=== PATIENT | male | born 1955 | race Caucasian/White ===

== ENCOUNTER 2022-12-08 18:13 | Inpatient (IN) | payer MEDICARE ==
[~2022-12-08] VITALS: Ht 165.1 cm; Wt 100.2 kg
[2022-12-08] MEDS ORDERED: METHYLPREDNISOLONE SOD SUCC 125MG/2ML (ACT-O-VIAL) IV STA (20:00)
[2022-12-08] MEDS ORDERED: IPRATROPIUM BROMIDE (0.02%) 0.5MG/2.5ML NEB HHN STA (20:00)
[2022-12-08] MEDS ORDERED: ALBUTEROL (0.083%) 2.5MG/3ML NEB HHN STA (20:00)
[2022-12-08] MEDS ORDERED: ASPIRIN 81MG TABLET PO ONE (20:00)
[2022-12-08 20:17] VITALS: PULSE 95; RESP 22; O2SAT 98
[2022-12-08 20:20] LABS: BASOPHILS % 0.3 % (0.0-2.0); EOSINOPHILS % 0.9 % (0.0-5.0); HEMATOCRIT. 37.2 % (42.0-52.0); HEMOGLOBIN. 12.8 g/dL (14.0-18.0); LYMPHOCYTES % 10.5 % (20.0-50.0); MEAN CORPUSCULAR HEMOGLOBIN 32.1 pg (28.0-32.0); MEAN CORPUSCULAR VOLUME 93.1 fL (80.0-94.0); MEAN PLATELET VOLUME 7.9 fl (7.4-10.4); MONOCYTES % 7.5 % (2.0-8.0); NEUTROPHILS % 80.8 % (40.0-76.0); PLATELET 256 x1000/uL (130-400)
[2022-12-08 20:25] LABS: CHLORIDE 109 mEq/L (98-107)
[2022-12-08] MEDS ORDERED: CEFTRIAXONE 1GM PREMIX 50 ML IV NR (23:15)
[2022-12-08] MEDS ORDERED: AZITHROMYCIN 500MG/250ML 250 ML IV NR (23:15)
[2022-12-08] MEDS ORDERED: ASPIRIN 325MG TABLET PO NR (23:30)
[2022-12-09] VITALS (7 sets, daily range): BP systolic 114–136; BP diastolic 61–71; PULSE 78–100; RESP 16–22; TEMP 97.1–98.8; O2SAT 94
[2022-12-09] MEDS ORDERED: ALBU6.7H3 IH (04:36)
[2022-12-09] MEDS ORDERED: LEVO125T8 MT (04:36)
[2022-12-09] MEDS ORDERED: TAMS-11 MT (04:36)
[2022-12-09] MEDS ORDERED: OXYM30SP26 BOTHNSTRLS (04:36)
[2022-12-09] MEDS ORDERED: IRBE1TAB43 MT (04:36)
[2022-12-09] MEDS ORDERED: ACETAMINOPHEN 325MG TABLET PO PRN (05:00)
[2022-12-09] MEDS: IPRATROPIUM/ALBUTEROL 0.5-3(2.5)MG/3ML NEB HHN PRN (05:10)
[2022-12-09 06:08] LABS: BASOPHILS % 0.1 % (0.0-2.0); EOSINOPHILS % 0.1 % (0.0-5.0); HEMATOCRIT. 35.3 % (42.0-52.0); HEMOGLOBIN. 12.3 g/dL (14.0-18.0); LYMPHOCYTES % 11.3 % (20.0-50.0); MEAN CORPUSCULAR HEMOGLOBIN 32.3 pg (28.0-32.0); MEAN CORPUSCULAR VOLUME 92.5 fL (80.0-94.0); MEAN PLATELET VOLUME 8.4 fl (7.4-10.4); MONOCYTES % 1.9 % (2.0-8.0); NEUTROPHILS % 86.6 % (40.0-76.0); PLATELET 259 x1000/uL (130-400); RED BLOOD CELL COUNT 3.81 mill/uL (4.7-6.1); RED CELL DISTRIBUTION WIDTH 14.9 % (11.6-14.6)
[2022-12-09] MEDS: LEVOTHYROXINE SODIUM 125MCG TABLET PO SCH (06:25)
[2022-12-09 06:54] LABS: HEPATITIS B SURFACE ANTIGEN NEGATIVE
[2022-12-09 07:00] LABS: CHLORIDE 108 mEq/L (98-107)
[2022-12-09 07:18] LABS: HDL CHOLESTEROL 56 mg/dL (40-59); LDL CHOLESTEROL 89 mg/dL (5-100)
[2022-12-09] MEDS: METOPROLOL TARTRATE 50MG TABLET PO SCH ×2 (08:28→20:26)
[2022-12-09] MEDS: LOSARTAN POTASSIUM 50 MG TABLET PO SCH (08:29)
[2022-12-09] MEDS: ASPIRIN 81MG TABLET PO SCH (08:29)
[2022-12-09] MEDS: ENOXAPARIN 30MG/0.3ML SYR SUBCUT SCH ×2 (08:30→20:26)
[2022-12-09] MEDS: TAMSULOSIN HCL 0.4MG SR CAPSULE PO SCH (08:30)
[2022-12-09] MEDS: METHYLPREDNISOLONE SOD SUCC 40MG VIAL IV SCH ×2 (08:30→16:26)
[2022-12-09] MEDS ORDERED: METOPROLOL SUCCINATE 50MG ER TABLET PO SCH (09:00)
[2022-12-09] MEDS ORDERED: CEFTRIAXONE 1GM PREMIX 50 ML IV SCH (10:00)
[2022-12-09 20:47] LABS: *AMPHETAMINES SCREEN URINE NEGATIVE (NEGATIVE); *BARBITURATES SCREEN URINE NEGATIVE (NEGATIVE); *BENZODIAZEPINES SCREEN URINE NEGATIVE (NEGATIVE); *COCAINE SCREEN URINE NEGATIVE (NEGATIVE); CANNABINOID URINE SCREEN NEGATIVE (NEGATIVE); METHADONE URINE SCREEN NEGATIVE (NEGATIVE); OPIATES URINE SCREEN NEGATIVE (NEGATIVE); PHENCYCLIDINE URINE SCREEN NEGATIVE (NEGATIVE)
[2022-12-09] MEDS ORDERED: CEFTRIAXONE 1,000 MG in DEXTROSE 5% WATER 50 ML IV SCH (23:00)
[2022-12-09] MEDS ORDERED: AZITHROMYCIN 500 MG in DEXT 5% WATER 250 ML IV SCH (23:00)
[2022-12-10] VITALS: BP 138/62; PULSE 82; RESP 18; TEMP 99.3
[2022-12-10 01:06] VITALS: PULSE 87; RESP 19; O2SAT 95
[2022-12-10] MEDS: IPRATROPIUM/ALBUTEROL 0.5-3(2.5)MG/3ML NEB HHN PRN (01:06)
[2022-12-10 04:00] VITALS: BP 116/43; PULSE 94; RESP 18; TEMP 97.1
[2022-12-10] MEDS: LEVOTHYROXINE SODIUM 125MCG TABLET PO SCH (06:27)
[2022-12-10 08:00] VITALS: BP 126/66; PULSE 78; TEMP 97
[2022-12-10] MEDS ORDERED: NITROGLYCERIN 50MCG/ML 10ML VIAL (CATH LAB) IV ONE (08:00)
[2022-12-10] MEDS ORDERED: NICARDIPINE 100MCG/ML 10ML VIAL (CATH LAB) IV ONE (08:00)
[2022-12-10] MEDS: METOPROLOL TARTRATE 50MG TABLET PO SCH ×2 (09:00→20:47)
[2022-12-10] MEDS: TAMSULOSIN HCL 0.4MG SR CAPSULE PO SCH (09:00)
[2022-12-10] MEDS: LOSARTAN POTASSIUM 50 MG TABLET PO SCH (09:00)
[2022-12-10] MEDS: ASPIRIN 81MG TABLET PO SCH (09:00)
[2022-12-10] MEDS: ENOXAPARIN 30MG/0.3ML SYR SUBCUT SCH ×2 (09:00→20:47)
[2022-12-10] MEDS ORDERED: IODIXANOL 320MG/ML 100 ML BOTTLE IV ONE (10:07)
[2022-12-10] MEDS ORDERED: HEPARIN 1000 UNITS/ML 10ML ONE (10:07)
[2022-12-10] MEDS ORDERED: LIDOCAINE HCL/PF 1% 10 MG/ML 5ML VIAL ONE (10:07)
[2022-12-10] MEDS ORDERED: FENTANYL CITRATE/PF 50MCG/ML 2ML VIAL ONE (10:35)
[2022-12-10] MEDS ORDERED: MIDAZOLAM HCL 2 MG/2 ML VIAL ONE (10:36)
[2022-12-10] MEDS ORDERED: HYDRALAZINE 20MG/ML VIAL IV NR (13:00)
[2022-12-10 16:00] VITALS: BP 129/72; PULSE 83; RESP 20; TEMP 98
[2022-12-10 20:00] VITALS: BP 154/79; PULSE 71; RESP 20; TEMP 96.9
[2022-12-10] MEDS ORDERED: PNEUMOCOCCAL 23-VAL P-SAC VAC 0.5 ML IM ONE (21:00)
[2022-12-11] VITALS: BP 142/76; PULSE 66; RESP 18; TEMP 96.8
[2022-12-11 04:00] VITALS: BP 143/77; PULSE 65; RESP 16; TEMP 97.9
[2022-12-11] MEDS: LEVOTHYROXINE SODIUM 125MCG TABLET PO SCH (06:26)
[2022-12-11 08:00] VITALS: BP 112/62; PULSE 76; RESP 18; TEMP 97.3
[2022-12-11] MEDS ORDERED: LEVOFLOXACIN 250MG TABLET PO SCH (11:00)
[2022-12-11 11:36] VITALS: BP 112/55; PULSE 72; RESP 20
[2022-12-11] MEDS: ASPIRIN 81MG TABLET PO SCH (11:40)
[2022-12-11] MEDS: METOPROLOL TARTRATE 50MG TABLET PO SCH (11:40)
[2022-12-11] MEDS: LOSARTAN POTASSIUM 50 MG TABLET PO SCH (11:40)
[2022-12-11] MEDS: TAMSULOSIN HCL 0.4MG SR CAPSULE PO SCH (11:40)
[2022-12-11] MEDS: ENOXAPARIN 30MG/0.3ML SYR SUBCUT SCH (11:40)
[2022-12-11 12:41] VITALS: BP 112/55; PULSE 72; TEMP 98; O2SAT 98
[2022-12-11] MEDS ORDERED: ALBU18HF2 IH ×2 (13:08→16:16)
[2022-12-11] MEDS ORDERED: IOHEXOL-350 100 ML BOTTLE ONE (13:08)
[2022-12-11] MEDS ORDERED: HYDR25TA MT ×2 (13:08→16:16)
[2022-12-11] MEDS ORDERED: FLUT1DIS3 INH (13:08)
[2022-12-11] MEDS ORDERED: FLUT1AER5 INH (16:16)
== END 2022-12-11 16:33 | disposition home or self-care (01) | DRG 280 ==
LOC: ER 18:13 → MICUSO 12-09 02:09 → 8WST 12-09 04:20
PROVIDERS: ADMIT Internal Medicine; ATTEND Internal Medicine
PROC: 4A023N7 Measurement of Cardiac Sampling and Pressure, Left Heart, Percutaneous Approach (ICD-10-PCS; principal; 2022-12-11)
PROC: B2111ZZ Fluoroscopy of Multiple Coronary Arteries using Low Osmolar Contrast (ICD-10-PCS; 2022-12-11)
PROC: B2151ZZ Fluoroscopy of Left Heart using Low Osmolar Contrast (ICD-10-PCS; 2022-12-11)
DX: I21.4 Non-ST elevation (NSTEMI) myocardial infarction (principal); I26.99 Other pulmonary embolism without acute cor pulmonale; J18.9 Pneumonia, unspecified organism; J96.00 Acute respiratory failure, unspecified whether with hypoxia or hypercapnia; E87.20 Acidosis, unspecified; D64.9 Anemia, unspecified; D72.819 Decreased white blood cell count, unspecified; E03.9 Hypothyroidism, unspecified; E66.9 Obesity, unspecified; J45.909 Unspecified asthma, uncomplicated; I25.10 Atherosclerotic heart disease of native coronary artery without angina pectoris; I10 Essential (primary) hypertension; Z79.82 Long term (current) use of aspirin; Z79.899 Other long term (current) drug therapy; Z68.36 Body mass index [BMI] 36.0-36.9, adult
CPT/HCPCS: 36415; 71045; 71275; 80048; 80053; 80061; 80305; 83036; 83605; 83880; 84145; 84484; 85025; 85379; 86803; 87340; 90732; 93005; 93306; 94640; 94644; 99291; J0360; J0456; J0696; J1644; J1650; J2250; J2920; J2930; J3010; J3490; J7060; Q9967